=== PATIENT | female | born 1965 | race American Indian/Alaskan Native ===

== ENCOUNTER 2017-01-05 11:24 | Outpatient (CLI) | payer OTHER ==
--- NOTE | 2017-01-05 15:30 | Ultrasound Report ---
TRANSABDOMINAL AND TRANSVAGINAL PELVIC ULTRASOUND: 01/05/17 11:24:00 CLINICAL: Menometrorrhagia FINDINGS: Transabdominal and transvaginal pelvic ultrasound demonstrated a minimally enlarged fibroid uterus measuring 10.0 x 5.5 x 7.2 cm. An anterior fundal subserosal fibroid measures 1.8 x 1.8 x 1.7 cm. A posterior fundal subserosal fibroid measures 2.6 x 2.1 x 2.5 cm.A normal proliferative endometrium measures 9.5 mm AP thickness. A right ovary is not identified. The left ovary is normal with a 2.3 cm dominant follicle. The left ovary measures 2.4 x 1.7 x 1.6cm. No adnexal mass. No free fluid. Normal urinary bladder and rectum. IMPRESSION: 1. A minimally enlarged fibroid uterus with a dominant 2.6 cm posterior fundal subserosal fibroid. 2. Normal endometrium. 3. Normal left ovary with a dominant 2.3 cm follicle. 4. No right ovary identified.
== END 2017-01-05 11:25 | disposition home or self-care (01) ==
LOC: SPVWC 11:24
PROVIDERS: ATTEND Family Medicine
DX: D25.9 Leiomyoma of uterus, unspecified (principal); N92.1 Excessive and frequent menstruation with irregular cycle; N85.2 Hypertrophy of uterus
CPT/HCPCS: 76830; 76856

== ENCOUNTER 2021-02-05 10:38 | Outpatient (CLI) | payer OTHER ==
--- NOTE | 2021-02-05 12:55 | Mammography Report ---
DIGITAL SCREENING MAMMOGRAM WITH CAD, 02/05/2021 CLINICAL INFORMATION / INDICATION: Routine screening mammography. TECHNIQUE: Digital bilateral 2D mammography was obtained in the craniocaudal and mediolateral obliqu e projections. This examination was interpreted with the benefit of Computer-Aided Detection analysis . COMPARISON: None available FINDINGS: Breast Density: The breasts are almost entirely fatty. No dominant mass, suspicious calcifications, or architectural distortion in either breast. IMPRESSION: No mammographic evidence of malignancy. Follow up recommendation: Routine yearly BI-RADS Category 1: Negative. A "normal" or negative report should not discourage follow up or biopsy of a clinically significant f inding. A written summary of these findings will be mailed to the patient. The patient will be entered into a mammography reporting system which will generate a reminder letter for the patient's next appointmen t at the appropriate interval. The [employer] recommends yearly mammograms starting at age 40 and continuing as l [place] as a woman is in good health. Breast MRI is recommended for women with an approximate 20-25% or greater lifetime risk of breast cancer, including women with a strong family history of breast or ova sakshi cancer or who have been treated for Hodgkin's disease. Signer Name: Brandi Pickard MD Signed: 02/05/2021 12:50 PM Workstation Name: [email or web address]
== END 2021-02-05 10:39 | disposition home or self-care (01) ==
LOC: MAMMO 10:38
PROVIDERS: ATTEND Nurse Practitioner Primary Care
DX: Z12.31 Encounter for screening mammogram for malignant neoplasm of breast (principal); N64.89 Other specified disorders of breast
CPT/HCPCS: 77067